=== PATIENT | male | born 1965 | race Asian ===

== ENCOUNTER 2018-09-27 09:35 | Day surgery (SDC) | payer OTHER | END 2018-09-27 12:15 | disposition home or self-care (01) | LOC: OR 09:35 | PROC: 3E0R33Z Introduction of Anti-inflammatory into Spinal Canal, Percutaneous Approach (ICD-10-PCS; principal; 2018-09-27) | PROC: 3E0R3BZ Introduction of Anesthetic Agent into Spinal Canal, Percutaneous Approach (ICD-10-PCS; 2018-09-27) | PROC: B01BYZZ Fluoroscopy of Spinal Cord using Other Contrast (ICD-10-PCS; 2018-09-27) | DX: M51.16 Intervertebral disc disorders with radiculopathy, lumbar region (principal) | CPT/HCPCS: J1020 ==

== ENCOUNTER 2018-11-08 09:58 | Day surgery (SDC) | payer OTHER | END 2018-11-08 11:45 | disposition home or self-care (01) | LOC: OR 09:58 | PROC: 3E0R33Z Introduction of Anti-inflammatory into Spinal Canal, Percutaneous Approach (ICD-10-PCS; principal; 2018-11-08) | PROC: B01BYZZ Fluoroscopy of Spinal Cord using Other Contrast (ICD-10-PCS; 2018-11-08) | DX: M50.13 Cervical disc disorder with radiculopathy, cervicothoracic region (principal) | CPT/HCPCS: J1020 ==

== ENCOUNTER 2018-12-05 07:47 | Day surgery (SDC) | payer OTHER ==
[~2018-12-05] VITALS: Ht 30.5 cm; Wt 0.5 kg
== END 2018-12-05 09:10 | disposition home or self-care (01) ==
LOC: OR 07:47
PROC: 3E0R33Z Introduction of Anti-inflammatory into Spinal Canal, Percutaneous Approach (ICD-10-PCS; principal; 2018-12-05)
PROC: B01BYZZ Fluoroscopy of Spinal Cord using Other Contrast (ICD-10-PCS; 2018-12-05)
DX: M50.123 Cervical disc disorder at C6-C7 level with radiculopathy (principal)
CPT/HCPCS: J1020

== ENCOUNTER 2019-11-27 07:18 | Day surgery (SDC) | payer OTHER ==
[~2019-11-27] VITALS: Ht 30.5 cm; Wt 0.5 kg
== END 2019-11-27 09:15 | disposition home or self-care (01) ==
LOC: OR 07:18
PROC: 3E0R33Z Introduction of Anti-inflammatory into Spinal Canal, Percutaneous Approach (ICD-10-PCS; principal; 2019-11-27)
PROC: B01BYZZ Fluoroscopy of Spinal Cord using Other Contrast (ICD-10-PCS; 2019-11-27)
DX: M51.16 Intervertebral disc disorders with radiculopathy, lumbar region (principal)
CPT/HCPCS: J1020

== ENCOUNTER 2020-02-26 07:26 | Day surgery (SDC) | payer OTHER | END 2020-02-26 09:05 | disposition home or self-care (01) | LOC: OR 07:26 | PROC: 3E0R33Z Introduction of Anti-inflammatory into Spinal Canal, Percutaneous Approach (ICD-10-PCS; principal; 2020-02-26) | PROC: B01BYZZ Fluoroscopy of Spinal Cord using Other Contrast (ICD-10-PCS; 2020-02-26) | DX: M51.16 Intervertebral disc disorders with radiculopathy, lumbar region (principal) | CPT/HCPCS: J1020 ==

== ENCOUNTER 2020-05-01 11:21 | Outpatient (CLI) | payer OTHER ==
[2020-05-01 12:05] LABS: POTASSIUM 3.7 mmol/L (3.6-5.2)
[2020-05-01 12:45] LABS: PLATELET COUNT 267 K/uL (142-355)
== END 2020-05-01 19:24 | disposition home or self-care (01) ==
LOC: LAB 11:21
PROVIDERS: ATTEND Nurse Practitioner Family
DX: Z00.00 Encounter for general adult medical examination without abnormal findings (principal); I10 Essential (primary) hypertension; F32.89 Other specified depressive episodes; Z79.899 Other long term (current) drug therapy; R53.83 Other fatigue; E78.49 Other hyperlipidemia; E55.9 Vitamin D deficiency, unspecified
CPT/HCPCS: 80053; 80061; 82306; 82607; 83036; 83704; 84153; 84439; 84443; 85027

== ENCOUNTER 2020-07-17 12:56 | Outpatient (CLI) | payer OTHER | END 2020-07-17 21:53 | disposition home or self-care (01) | LOC: LAB 12:56 | PROVIDERS: ATTEND Nurse Practitioner Family | DX: Z00.00 Encounter for general adult medical examination without abnormal findings (principal); M50.20 Other cervical disc displacement, unspecified cervical region; M54.16 Radiculopathy, lumbar region; Z79.891 Long term (current) use of opiate analgesic; Z79.899 Other long term (current) drug therapy; E55.9 Vitamin D deficiency, unspecified; E53.9 Vitamin B deficiency, unspecified; R53.81 Other malaise; E78.49 Other hyperlipidemia | CPT/HCPCS: 80061; 82306 ==